=== PATIENT | female | born 1930 | race Caucasian/White ===

== ENCOUNTER 2019-12-08 10:18 | Emergency (ER) | payer MEDICARE, OTHER, MEDICAID ==
[2019-12-08 10:29] VITALS: PULSE 68
[2019-12-08 10:54] VITALS: BP 154/70
[2019-12-08] MEDS ORDERED: Lidocaine 1% with EPINEPHrine 1:100,000 20 ML MDV ONE (11:28)
[2019-12-08] MEDS ORDERED: Lidocaine 1% with EPINEPHrine 1:100,000 20 ML MDV INJECT ONE (11:40)
--- NOTE | 2019-12-08 11:44 | CT ---
[id number] CT/CT Head WO IV EXAM: NONCONTRAST HEAD CT INDICATION: Fall. COMPARISON: October 31, 2016. DISCUSSION: Motion artifact somewhat limits this examination. Mild right anterior scalp/forehead soft tissue swelling. Mild to moderate generalized atrophy. Moderate multifocal white matter hypoattenuation is nonspecific, but generally ascribed to chronic small vessel ischemia. No mass effect or midline shift. No acute hemorrhage or extra-axial fluid collection. No acute territorial infarct is identified. 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 IMPRESSION: 1. No evidence of acute intracranial trauma. Benjamin Sesay MD 12/08/19 1143 Thank you for allowing us to participate in the care of your patient.
[2019-12-08] MEDS ORDERED: Diphtheria,Pertussis(Acell),Tetanus Vaccine 0.5 ML SDV IM ONE (11:47)
--- NOTE | 2019-12-08 11:52 | CT ---
[id number] CT/CT Cervical Spine WO IV EXAM: NONCONTRAST CERVICAL SPINE CT INDICATION: FALL. COMPARISON: July 08, 2011. DISCUSSION: Straightening of the cervical lordosis. 3 mm spondylolisthesis C3-C4, C4-C5 and T1-T2. Partial fusion of the C6-T1 vertebral bodies. No fracture or suspicious osseous lesion is identified. Advanced degenerative disc disease C4-C5, C5-C6, C6-C7 and T1-T2. Moderate to advanced facet arthropathy throughout the cervical spine. IMPRESSION: 1. No acute fracture is identified. Benjamin Sesay MD 12/08/19 0937 Thank you for allowing us to participate in the care of your patient.
[2019-12-08] MEDS ORDERED: Bacitracin/Neomycin/Polymyxin B Oint 0.9 GM U/D Packet TOP ONE (11:57)
[2019-12-08] MEDS ORDERED: Bacitracin/Neomycin/Polymyxin B Oint 0.9 GM U/D Packet ONE (11:57)
--- NOTE | 2019-12-08 11:57 | EDM.PDOC ---
ED HPI GENERAL MEDICAL PROBLEM - General Chief Complaint: General Stated Complaint: FALL Time Seen by Provider: 12/08/19 11:47 Source of Information: Reports: Patient, EMS, EMS Notes Reviewed, Care Home Records History Limitations: Reports: Altered Mental Status (Chronic dementia) - History of Present Illness INITIAL COMMENTS - FREE TEXT/NARRATIVE: Patient is an 89-year-old female who presents to the emergency department this morning via EMS secondary to fall out of a wheelchair while at nursing facility. Patient is a resident at the [facility] and according to nursing it was an unwitnessed event where patient fell out of wheelchair and was found on the floor with head injury. 911 was contacted for transport to ER. Nursing staff states that patient did not lose consciousness, has a history of dementia, and appeared at her baseline. Upon presentation, patient is alert, awake and confused. Patient denies chest pain, shortness of breath, headache, or any other pain. Onset: Today, Sudden Location: Reports: Head Quality: Reports: Ache Severity: Mild Improves with: Reports: None Worsens with: Reports: None Context: Reports: Trauma (Unwitnessed fall) Associated Symptoms: Reports: No Other Symptoms. Denies: Chest Pain, Nausea/ Vomiting, Shortness of Breath Head Pain Score (Numeric/FACES): 6 - Related Data Allergies Allergy/AdvReac Type Severity Reaction Status Date / Time Benzodiazepines Allergy Cannot Verified 12/08/19 10:24 Remember Home Meds: Home Meds Acetaminophen [Pain & Fever] 650 mg PO Q6H PRN 05/16/18 [History] Acetaminophen [Tylenol] 650 mg PO BEDTIME 05/16/18 [History] Carboxymethylcellulose Sodium [Refresh Tears] 1 drop EYEBOTH TID PRN 05/16/18 [ History] Melatonin 5 mg PO BEDTIME 05/16/18 [History] amLODIPine Besylate [Amlodipine Besylate] 2.5 mg PO DAILY 05/16/18 [History] rOPINIRole [Requip] 1 mg PO BEDTIME 05/16/18 [History] Acetaminophen [Feverall] 650 mg RECTAL Q6H PRN 05/17/18 [History] Bisacodyl [Dulcolax] 10 mg RECTAL DAILY PRN 12/08/19 [History] Cetirizine [ZyrTEC] 5 mg PO DAILY 12/08/19 [History] Emollient Combination No.40 [Cetaphil] 1 applic TOP BID 12/08/19 [History] Famotidine 20 mg PO DAILY 12/08/19 [History] Mag Hydrox/Aluminum Hyd/Simeth [Antacid-Simethicone] 30 ml PO Q6H PRN 12/08/19 [ History] Metoprolol Tartrate [Lopressor] 12.5 mg PO BID 12/08/19 [History] Polyethylene Glycol 3350 [MiraLAX] 17 g PO DAILY PRN 12/08/19 [History] Sennosides [Senna] 2 tab PO BID 12/08/19 [History] Past Medical History HEENT History: Reports: Other (See Below) Other HEENT History: dry eye syndrome Cardiovascular History: Reports: Heart Failure, High Cholesterol, Hypertension Respiratory History: Reports: SOB Gastrointestinal History: Reports: Chronic Constipation, GERD, Other (See Below) Other Gastrointestinal History: Chowdary's Esophagus Genitourinary History: Reports: UTI, Recurrent, Other (See Below) Other Genitourinary History: overactive bladder 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 non-responsive, unable to obtain - Past Surgical History Neurological Surgical History: Reports: None Social & Family History - Family History Family Medical History: Noncontributory - Caffeine Use Caffeine Use: Reports: Other Other Caffeine Use: unable to obtain ED ROS GENERAL - Review of Systems Review Of Systems: Comprehensive ROS is negative, except as noted in HPI. Constitutional: Reports: No Symptoms HEENT: Reports: No Symptoms Respiratory: Reports: No Symptoms Cardiovascular: Reports: No Symptoms Endocrine: Reports: No Symptoms GI/Abdominal: Reports: No Symptoms : Reports: No Symptoms Musculoskeletal: Reports: No Symptoms Skin: Reports: Wound (Laceration to right forehead) Neurological: Reports: Confusion, Pre-Existing Deficit Psychiatric: Reports: No Symptoms Hematologic/Lymphatic: Reports: No Symptoms Immunologic: Reports: No Symptoms ED EXAM, GENERAL - Physical Exam Exam: See Below Exam Limited By: Altered Mental Status (Of chronic nature) General Appearance: Alert, WD/WN, No Apparent Distress Eye Exam: Bilateral Eye: Normal Inspection Nose: Normal Inspection, No Blood Throat/Mouth: Normal Inspection, Normal Oropharynx, No Airway Compromise Head: Facial Swelling, Facial Tenderness Neck: Normal Inspection, Supple, Non-Tender Respiratory/Chest: No Respiratory Distress, Lungs Clear, Normal Breath Sounds, No Accessory Muscle Use, Chest Non-Tender Cardiovascular: Regular Rate, Rhythm, No Murmur GI/Abdominal: Normal Bowel Sounds, Soft, Non-Tender, No Organomegaly, No Distention, No Abnormal Bruit, Pelvis Stable Back Exam: Normal Inspection. No: CVA Tenderness (L), CVA Tenderness (R) Extremities: Normal Inspection Neurological: Alert, Confused Psychiatric: Normal Affect, Normal Mood Skin Exam: Warm, Dry, Normal Color, No Rash, Wound/Incision (3 cm linear laceration to right lower forehead extending distal into eyebrow.) ED GENERAL MEDICAL PROCEDURES - Laceration/Wound Repair Right Lower Forehead Lac/wound length in cm: 3 Appearance: Subcutaneous Distal NVT: Neuro & Vascular Intact Anesthetic Type: Local Local Anesthesia - Lidocaine (Xylocaine): 1% with EPI Local Anesthetic Volume: 3cc Skin Prep: Providone-Iodine (Betadine) Closed with: Sutures Suture Size: 4-0 # of Sutures: 5 Suture Type: Nylon, Interrupted Sterile Dressing Applied: Nurse Tetanus Status Addressed: Yes Course - Vital Signs Last Recorded V/S: Last Vital Signs Temp 97.1 F 12/08/19 10:25 Pulse 68 12/08/19 10:25 Resp 20 12/08/19 10:25 BP 154/70 H 12/08/19 10:54 Pulse Ox 100 12/08/19 10:25 - Orders/Labs/Meds Orders: Active Orders 24 hr Category Date Time Status Vaccines to be Administered [RC] PER UNIT ROUTINE Care 12/08/19 11:48 Ordered C-Spine [Cervical Spine wo Cont] [CT] Stat Exams 12/08/19 10:33 Ordered Diphth,Pertuss(Acell),Tet Vac [Adacel] Med 12/08/19 11:47 Once 0.5 ml IM .ONCE ONE Lidocaine 1% w/EPINEPHrine [Xylocaine 1% with Med 12/08/19 11:40 Once EPINEPHrine 1:100,000] 3 ml INJECT ONETIME ONE Meds: Medications Discontinued Medications Generic Name Dose Route Start Last Admin Trade Name Freq PRN Reason Stop Dose Admin Lidocaine/Epinephrine Confirm 12/08/19 11:28 12/08/19 11:46 Xylocaine 1% With Epinephrine 1:100,000 Administered 12/08/19 11:29 Not Given Dose 20 ml .ROUTE .STK-MED ONE Lidocaine/Epinephrine 3 ml 12/08/19 11:40 Xylocaine 1% With Epinephrine 1:100,000 INJECT 12/08/19 11:41 ONETIME ONE - Radiology Interpretation Free Text/Narrative:: CT without contrast of head and cervical spine shows no intracranial process or cervical fractures. - Re-Assessments/Exams Free Text/Narrative Re-Assessment/Exam: 12/08/19 11:59 Patient afebrile, vital signs stable, tolerated suturing procedure well. Patient will be returned to [facility]. And follow-up with PCP for suture removal in 10 days. Departure - Departure Time of Disposition: 11:59 Disposition: Home, Self-Care 01 Condition: Good Clinical Impression: Head injury Qualifiers: Encounter type: initial encounter Qualified Code(s): S09.90XA - Unspecified injury of head, initial encounter Facial laceration Qualifiers: Encounter type: initial encounter Qualified Code(s): S01.81XA - Laceration without foreign body of other part of head, initial encounter - Discharge Information Instructions: Head Injury, Adult, [id number], Stitches, Joaquim, or Adhesive Wound Closure, [id number], Facial Laceration, [id number] Referrals: Estela Rea MD [Primary Care Provider] - Additional Instructions: PCP follow-up in 10 days for suture removal. Return to emergency department sooner if symptoms continue or worsen. Sepsis Event Note - Evaluation Sepsis Screening Result: No Definite Risk - Focused Exam Vital Signs: Vital Signs Temp Pulse Resp BP Pulse Ox 12/08/19 10:54 154/70 H 12/08/19 10:46 156/68 H 12/08/19 10:25 97.1 F 68 20 186/77 H 100 Date Exam was Performed: 12/08/19 Time Exam was Performed: 11:48 - My Orders Last 24 Hours: My Active Orders 12/08/19 10:33 C-Spine [Cervical Spine wo Cont] [CT] Stat 12/08/19 11:40 Lidocaine 1% w/EPINEPHrine [Xylocaine 1% with EPINEPHrine 1:100,000] 3 ml INJECT ONETIME ONE 12/08/19 11:47 Diphth,Pertuss(Acell),Tet Vac [Adacel] 0.5 ml IM .ONCE ONE 12/08/19 11:48 Vaccines to be Administered [RC] PER UNIT ROUTINE - Assessment/Plan Last 24 Hours: My Active Orders 12/08/19 10:33 C-Spine [Cervical Spine wo Cont] [CT] Stat 12/08/19 11:40 Lidocaine 1% w/EPINEPHrine [Xylocaine 1% with EPINEPHrine 1:100,000] 3 ml INJECT ONETIME ONE 12/08/19 11:47 Diphth,Pertuss(Acell),Tet Vac [Adacel] 0.5 ml IM .ONCE ONE 12/08/19 11:48 Vaccines to be Administered [RC] PER UNIT ROUTINE Assessment:: Head injury with facial laceration Plan: Return to nursing facility
== END 2019-12-08 13:00 | disposition home or self-care (01) ==
LOC: KA.ED 10:18
DX: S09.90XA Unspecified injury of head, initial encounter (principal); S01.81XA Laceration without foreign body of other part of head, initial encounter; I11.0 Hypertensive heart disease with heart failure; I50.9 Heart failure, unspecified; E78.00 Pure hypercholesterolemia, unspecified; G30.9 Alzheimer's disease, unspecified; F02.80 Dementia in other diseases classified elsewhere, unspecified severity, without behavioral disturbance, psychotic disturbance, mood disturbance, and anxiety; Z88.8 Allergy status to other drugs, medicaments and biological substances; Z86.73 Personal history of transient ischemic attack (TIA), and cerebral infarction without residual deficits; Z79.899 Other long term (current) drug therapy; W05.0XXA Fall from non-moving wheelchair, initial encounter; Y92.129 Unspecified place in nursing home as the place of occurrence of the external cause
CPT/HCPCS: 12013; 70450; 72125; 90471; 90715; 99284; 99285-25